=== PATIENT | male | born 2000 ===

== ENCOUNTER 2021-11-04 22:18 | Inpatient (IN) | payer MEDICAID, OTHER ==
--- NOTE | 2021-11-05 00:11 | ED ---
Psych HPI - General Chief Complaint: Psychiatric Symptoms Stated Complaint: Mental Health Time Seen by Provider: 11/04/21 23:27 Source: EMS Mode of arrival: EMS - History of Present Illness Initial Comments: This patient is a 21-year-old man with history of previous psychosis who presents to have evaluation for suspected psychosis. The patient reportedly had attempted to cross the bridge here in to [place]. He was returned to the [place] after [place] authorities felt that he was delusional. The patient reportedly displayed hyperreligious thought content. He was brought here for evaluation. When I interview the patient, he does appear to have paranoid delu sional thought content. The patient's brother is here and provides additional history that he has history of either bipolar or some schizophrenic symptoms. He had been in [facility] in March and discharged with medications including Risperdal and divalproex, that she does not appear to be currently taking. The patient resides in [facility]. He was previously stool in the [facility] but then appeared to have psychotic break and could not continue school. Complaint: other -: days(s) Associated Psychiatric Symptoms: racing thoughts, delusions History of same: Yes Quality: constant Improves With: none Worsens With: none - Related Data Home Medications Medication Instructions Recorded Confirmed No Known Home Medications 11/05/21 11/05/21 Allergies Allergy/AdvReac Type Severity Reaction Status Date / Time No Known Allergies Allergy Verified 11/05/21 08:51 Review of Systems ROS Statement: Those systems with pertinent positive or pertinent negative responses have been documented in the HPI. ROS Other: All systems not noted in ROS Statement are negative. Limitations: ROS unobtainable due to patients medical condition Constitutional: Denies: fever Respiratory: Denies: cough Cardiovascular: Denies: chest pain Gastrointestinal: Denies: abdominal pain Past Medical History Past Medical History: No Reported History History of Any Multi-Drug Resistant Organisms: None Reported Past Surgical History: No Surgical Hx Reported Past Psychological History: Schizophrenia Smoking Status: Never smoker Past Alcohol Use History: None Reported Past Drug Use History: None Reported General Exam Limitations: no limitations General appearance: alert, in no apparent distress, anxious Head exam: Present: atraumatic, normocephalic Eye exam: Present: normal appearance, PERRL, EOMI. Absent: scleral icterus, conjunctival injection ENT exam: Present: normal oropharynx Neck exam: Present: normal inspection, full ROM Respiratory exam: Present: normal lung sounds bilaterally. Absent: respiratory distress, wheezes, rales, rhonchi, stridor Cardiovascular Exam: Present: regular rate, normal rhythm, normal heart sounds. Absent: systolic murmur, diastolic murmur, rubs, gallop GI/Abdominal exam: Present: soft. Absent: distended, tenderness, guarding, rebound, rigid Extremities exam: Present: normal inspection, normal capillary refill Back exam: Present: normal inspection Neurological exam: Present: alert Psychiatric exam: Present: anxious, manic. Absent: homicidal ideation, suicidal ideation Skin exam: Present: warm, dry, intact, normal color. Absent: rash Course Vital Signs 11/05/21 07:57 Temperature 98.7 F Pulse Rate 102 H Respiratory 18 Rate Blood Pressure 132/99 O2 Sat by Pulse 100 Oximetry Medical Decision Making - Lab Data Result diagrams: 11/05/21 03:40 11/05/21 03:40 Lab Results 11/05/21 11/05/21 11/05/21 Range/Units 03:40 03:40 03:40 WBC 10.6 (3.8-10.6) k/uL RBC 5.84 (4.30-5.90) m/uL Hgb 17.4 (13.0-17.5) gm/dL Hct 53.9 H (39.0-53.0) % MCV 92.4 (80.0-100.0) fL MCH 29.7 (25.0-35.0) pg MCHC 32.2 (31.0-37.0) g/dL RDW 11.9 (11.5-15.5) % Plt Count 380 (150-450) k/uL MPV 6.9 Neutrophils % 74 % Lymphocytes % 17 % Monocytes % 6 % Eosinophils % 1 % Basophils % 1 % Neutrophils # 7.8 H (1.3-7.7) k/uL Lymphocytes # 1.8 (1.0-4.8) k/uL Monocytes # 0.7 (0-1.0) k/uL Eosinophils # 0.1 (0-0.7) k/uL Basophils # 0.1 (0-0.2) k/uL Sodium 139 (137-145) mmol/L Potassium 3.9 (3.5-5.1) mmol/L Chloride 99 (98-107) mmol/L Carbon Dioxide 22 (22-30) mmol/L Anion Gap 18 mmol/L BUN 19 (9-20) mg/dL Creatinine 1.25 (0.66-1.25) mg/dL Est GFR (CKD-EPI)AfAm >90 (>60 ml/min/1.73 sqM) Est GFR (CKD-EPI)NonAf 82 (>60 ml/min/1.73 sqM) Glucose 117 H (74-99) mg/dL Estimated Ave Glu mg/dL 98 Hemoglobin A1c 5.0 (0.0-6.0) % Calcium 10.1 (8.4-10.2) mg/dL Total Bilirubin (0.2-1.3) mg/dL Conjugated Bilirubin (0.0-0.3) mg/dL Unconjugated Bilirubin (0.0-1.1) mg/dL Delta Bilirubin (0.0-0.2) mg/dL AST (17-59) U/L ALT (4-49) U/L Alkaline Phosphatase (38-126) U/L Total Protein (6.3-8.2) g/dL Albumin (3.5-5.0) g/dL Urine Opiates Screen (NotDetected) Ur Oxycodone Screen (NotDetected) Urine Methadone Screen (NotDetected) Ur Propoxyphene Screen (NotDetected) Ur Barbiturates Screen (NotDetected) U Tricyclic Antidepress (NotDetected) Ur Phencyclidine Scrn (NotDetected) Ur Amphetamines Screen (NotDetected) U Methamphetamines Scrn (NotDetected) U Benzodiazepines Scrn (NotDetected) Urine Cocaine Screen (NotDetected) U Marijuana (THC) Screen (NotDetected) Serum Alcohol <10 mg/dL Coronavirus (PCR) (Not Detectd) 11/05/21 11/05/21 11/05/21 Range/Units 03:40 03:47 07:52 WBC (3.8-10.6) k/uL RBC (4.30-5.90) m/uL Hgb (13.0-17.5) gm/dL Hct (39.0-53.0) % MCV (80.0-100.0) fL MCH (25.0-35.0) pg MCHC (31.0-37.0) g/dL RDW (11.5-15.5) % Plt Count (150-450) k/uL MPV Neutrophils % % Lymphocytes % % Monocytes % % Eosinophils % % Basophils % % Neutrophils # (1.3-7.7) k/uL Lymphocytes # (1.0-4.8) k/uL Monocytes # (0-1.0) k/uL Eosinophils # (0-0.7) k/uL Basophils # (0-0.2) k/uL Sodium (137-145) mmol/L Potassium (3.5-5.1) mmol/L Chloride (98-107) mmol/L Carbon Dioxide (22-30) mmol/L Anion Gap mmol/L BUN (9-20) mg/dL Creatinine (0.66-1.25) mg/dL Est GFR (CKD-EPI)AfAm (>60 ml/min/1.73 sqM) Est GFR (CKD-EPI)NonAf (>60 ml/min/1.73 sqM) Glucose (74-99) mg/dL Estimated Ave Glu mg/dL Hemoglobin A1c (0.0-6.0) % Calcium (8.4-10.2) mg/dL Total Bilirubin 0.8 (0.2-1.3) mg/dL Conjugated Bilirubin 0.0 (0.0-0.3) mg/dL Unconjugated Bilirubin 0.5 (0.0-1.1) mg/dL Delta Bilirubin 0.3 H (0.0-0.2) mg/dL AST 34 (17-59) U/L ALT 20 (4-49) U/L Alkaline Phosphatase 115 (38-126) U/L Total Protein 9.5 H (6.3-8.2) g/dL Albumin 5.5 H (3.5-5.0) g/dL Urine Opiates Screen Not Detected (NotDetected) Ur Oxycodone Screen Not Detected (NotDetected) Urine Methadone Screen Not Detected (NotDetected) Ur Propoxyphene Screen Not Detected (NotDetected) Ur Barbiturates Screen Not Detected (NotDetected) U Tricyclic Antidepress Not Detected (NotDetected) Ur Phencyclidine Scrn Not Detected (NotDetected) Ur Amphetamines Screen Not Detected (NotDetected) U Methamphetamines Scrn Not Detected (NotDetected) U Benzodiazepines Scrn Not Detected (NotDetected) Urine Cocaine Screen Not Detected (NotDetected) U Marijuana (THC) Screen Not Detected (NotDetected) Serum Alcohol mg/dL Coronavirus (PCR) Not Detected (Not Detectd) Disposition Clinical Impression: Acute psychosis Disposition: ADMITTED IP TO THIS [facility] Condition: Fair Is patient prescribed a controlled substance at d/c from ED?: No
[2021-11-05 04:05] LABS: Basophils # (A) 0.1 k/uL (0-0.2); Basophils % (A) 1 %; Eosinophils # (A) 0.1 k/uL (0-0.7); Eosinophils % (A) 1 %; HCT 53.9 % (39.0-53.0); HGB 17.4 gm/dL (13.0-17.5); Lymphocytes # (A) 1.8 k/uL (1.0-4.8); Lymphocytes % (A) 17 %; MCH 29.7 pg (25.0-35.0); MCHC 32.2 g/dL (31.0-37.0); MCV 92.4 fL (80.0-100.0); Mean Platelet Volume 6.9; Monocytes # (A) 0.7 k/uL (0-1.0); Monocytes % (A) 6 %; Neutrophils # (A) 7.8 k/uL (1.3-7.7); Neutrophils % (A) 74 %; Platelet Count 380 k/uL (150-450); RBC 5.84 m/uL (4.30-5.90); RDW 11.9 % (11.5-15.5); WBC 10.6 k/uL (3.8-10.6)
[2021-11-05 04:20] LABS: African American GFR (CKD) >90 (>60 ml/min/1.73 sqM); Alcohol <10 mg/dL; Anion Gap 18 mmol/L; Blood Urea Nitrogen 19 mg/dL (9-20); Calcium 10.1 mg/dL (8.4-10.2); Carbon Dioxide 22 mmol/L (22-30); Chloride 99 mmol/L (98-107); Glucose 117 mg/dL (74-99); Non-African American GFR(CKD) 82 (>60 ml/min/1.73 sqM); Potassium 3.9 mmol/L (3.5-5.1); Sodium 139 mmol/L (137-145)
[2021-11-05 08:11] LABS: Amphetamine Screen,Urine Not Detected (NotDetected); Barbiturate Screen,Urine Not Detected (NotDetected); Benzodiazepines Screen,Urine Not Detected (NotDetected); Cocaine Screen,Urine Not Detected (NotDetected); Methadone Screen, Urine Not Detected (NotDetected); Opiate Screen,Urine Not Detected (NotDetected); Oxycodone Screen, Urine Not Detected (NotDetected); Phencyclidine Screen,Urine Not Detected (NotDetected); Tricyclic Antidepressant,Urine Not Detected (NotDetected); Urn Cannabinoid Scrn Not Detected (NotDetected)
[2021-11-05] MEDS ORDERED: haloperidoL 5 MG TAB PO PRN (08:24)
[2021-11-05] MEDS ORDERED: MAG HYDROX/AL HYDROX/SIMETH 30 ML CUP PO PRN (08:24)
[2021-11-05] MEDS ORDERED: LORazepam 2 MG/ML INJ IM PRN (08:24)
[2021-11-05] MEDS ORDERED: HALOPERIDOL LACTATE 5 MG/ML 1 ML VIAL IM PRN (08:24)
[2021-11-05] MEDS ORDERED: MAGNESIUM HYDROXIDE 2,400 MG/10 ML CUP PO PRN (08:24)
[2021-11-05] MEDS ORDERED: NICOTINE 14MG/24HR PATCH TRANSDERM SCH (09:00)
--- NOTE | 2021-11-05 12:53 | P.HP ---
Psychiatric H&P - . H&P Date: 11/05/21 History & Physical: Allergies Allergy/AdvReac Type Severity Reaction Status Date / Time No Known Allergies Allergy Verified 11/05/21 08:51 Vital Signs Temp 98.1 F 11/05/21 09:22 Pulse 101 H 11/05/21 09:22 Resp 18 11/05/21 09:22 BP 142/100 11/05/21 09:22 Pulse Ox 100 11/05/21 07:57 FiO2 Intake & Output 11/04/21 11/05/21 11/05/21 18:59 06:59 18:59 Weight 68.039 kg 71.668 kg Laboratory Last Values WBC 10.6 k/uL (3.8-10.6) 11/05/21 03:40 RBC 5.84 m/uL (4.30-5.90) 11/05/21 03:40 Hgb 17.4 gm/dL (13.0-17.5) 11/05/21 03:40 Hct 53.9 % (39.0-53.0) H 11/05/21 03:40 MCV 92.4 fL (80.0-100.0) 11/05/21 03:40 MCH 29.7 pg (25.0-35.0) 11/05/21 03:40 MCHC 32.2 g/dL (31.0-37.0) 11/05/21 03:40 RDW 11.9 % (11.5-15.5) 11/05/21 03:40 Plt Count 380 k/uL (150-450) 11/05/21 03:40 MPV 6.9 11/05/21 03:40 Neutrophils % 74 % 11/05/21 03:40 Lymphocytes % 17 % 11/05/21 03:40 Monocytes % 6 % 11/05/21 03:40 Eosinophils % 1 % 11/05/21 03:40 Basophils % 1 % 11/05/21 03:40 Neutrophils # 7.8 k/uL (1.3-7.7) H 11/05/21 03:40 Lymphocytes # 1.8 k/uL (1.0-4.8) 11/05/21 03:40 Monocytes # 0.7 k/uL (0-1.0) 11/05/21 03:40 Eosinophils # 0.1 k/uL (0-0.7) 11/05/21 03:40 Basophils # 0.1 k/uL (0-0.2) 11/05/21 03:40 Sodium 139 mmol/L (137-145) 11/05/21 03:40 Potassium 3.9 mmol/L (3.5-5.1) 11/05/21 03:40 Chloride 99 mmol/L (98-107) 11/05/21 03:40 Carbon Dioxide 22 mmol/L (22-30) 11/05/21 03:40 Anion Gap 18 mmol/L 11/05/21 03:40 BUN 19 mg/dL (9-20) 11/05/21 03:40 Creatinine 1.25 mg/dL (0.66-1.25) 11/05/21 03:40 Est GFR (CKD-EPI)AfAm >90 (>60 ml/min/1.73 sqM) 11/05/21 03:40 Est GFR (CKD-EPI)NonAf 82 (>60 ml/min/1.73 sqM) 11/05/21 03:40 Glucose 117 mg/dL (74-99) H 11/05/21 03:40 Calcium 10.1 mg/dL (8.4-10.2) 11/05/21 03:40 Urine Opiates Screen Not Detected (NotDetected) 11/05/21 07:52 Ur Oxycodone Screen Not Detected (NotDetected) 11/05/21 07:52 Urine Methadone Screen Not Detected (NotDetected) 11/05/21 07:52 Ur Propoxyphene Screen Not Detected (NotDetected) 11/05/21 07:52 Ur Barbiturates Screen Not Detected (NotDetected) 11/05/21 07:52 U Tricyclic Antidepress Not Detected (NotDetected) 11/05/21 07:52 Ur Phencyclidine Scrn Not Detected (NotDetected) 11/05/21 07:52 Ur Amphetamines Screen Not Detected (NotDetected) 11/05/21 07:52 U Methamphetamines Scrn Not Detected (NotDetected) 11/05/21 07:52 U Benzodiazepines Scrn Not Detected (NotDetected) 11/05/21 07:52 Urine Cocaine Screen Not Detected (NotDetected) 11/05/21 07:52 U Marijuana (THC) Screen Not Detected (NotDetected) 11/05/21 07:52 Serum Alcohol <10 mg/dL 11/05/21 03:40 Coronavirus (PCR) Not Detected (Not Detectd) 11/05/21 03:47 11/05/21 12:47 IDENTIFYING DATA: Patient is a 21-year-old czech male, with a history of schizophrenia, currently lives with his brother. HPI: Patient presented to the hospital yesterday as he. Apparently attempted to [place] the border into [place]. He was brought in by authorities for acting delusional and bizarre with border patrol. Patient apparently was hyper hindu and apparently has a history of schizophrenia and not taking his medications. Patient was petitioned by his brother and admitted involuntarily. Patient was agreeable to speak to verse writer today. He is fairly preoccupied with discharge appeared to have poor judgment and insight. He claims that he does have a history of schizophrenia and he claims that he was "moving out from my brother's house" and states that he lives in [place]. He claims that he was driving to "get away from people" and was endorsing paranoia. He states that "I must have been tripping out". He claims that he just so happened to get onto the bridge and go to [place] where he was caught. He claims to want to get away from these people that were following him. He claims that his mood is "fine" and he was illogical at times and had loose associations. He is denying any anxiety today. He claims that he does hear voices at times and also music. He is denying any visual hallucinations. Patient is denying any suicidal or homicidal ideations intent or plan. Patient denies any flight of ideas racing thoughts and increased in goal directed behavior. Patient admits to using no recreational drugs or cigarettes PAST PSYCHIATRIC HISTORY: Patient states that he has a history of schizophrenia. He claims that he is currently not on any medications however used to take Risperdal and Depakote. He claims that he was previously admitted to [facility] however cannot remember when. Patient denies any psychiatric outpatient follow- up. Patient denies any history of suicide attempts in the past. PMH: As per medical H&P ALLERGIES: as per EMR CHEMICAL DEPENDENCY HISTORY: as per HPI FAMILY PSYCHIATRIC/SUBSTANCE USE HISTORY: He believes that his father may have some form of mental illness. SOCIAL HISTORY: Patient was born and raised in [facility] and moved [place] the [place] when he was 4 years old. He claims that he was previously enrolled at [facility] for [employer] however dropped out in 2018. He is denying any legal history however does state that he may have been charged with trespassing in the past. He is unmarried has no kids, currently living with his brother. MENTAL STATUS EXAM: General Appearance: Patient appears to be wearing glasses, stated age is alert, guarded and paranoid at times. Patient appears to have poor hygiene and grooming. Behavior: Patient is seated without any agitated behavior. Paranoia, guarded Speech: Patient's speech is fluent and nonpressured. [place]. Mood/Affect: Patient reports their mood is ok, affect is congruent and constricted. Suicidality/Homicidality: Patient denies having any homicidal ideation intent or plan. Denies any suicidal ideations intent or plan Perceptions: Patient denies any visual hallucinations and claims that he does hear voices and music at times. Though content/process: Patient is endorsing paranoia. Illogical and loose associations. Memory and concentration: AOX3, grossly intact for the purposes of this session. Can spell "WORLD" backwards Judgment and insight: poor STRENGTHS/WEAKNESSES: strength is that patient is resilient. Weakness is that patient has poor judgment and is impulsive INTELLECT: average IMPRESSIONS: Schizophrenia PLAN: -Patient is admitted under involuntary status to MHU for stabilization of psychiatric symptoms and safety. Patient has not signed adult voluntary form and medication consent and is placed in patient's chart. A second certification was completed and along with petition will be filed for court. -Medications : Will start patient on Abilify 5 mg daily for psychosis with a plan to titrate up as needed. Trazodone 50 mg daily at bedtime for sleep. -Ativan and Haldol PRN for agitation/aggression -Patient was informed of the risks, benefits and side effects of the medication and patient verbally consented to taking the medications. Patient signed med consent form and was placed in chart. -Internal Medicine consult to perform medical evaluation and physical. -NRT - not needed as patient does not smoke -SW on board for discharge planning. Encourage patient to participate in groups to work on coping skills. Will await deferral and court date.
[2021-11-05] MEDS: ARIPiprazole 5 MG TAB PO SCH (13:07)
--- NOTE | 2021-11-05 14:18 | P.PN ---
Progress Note - Text Currently, patient is not agreeable to meet with me and refused to be seen by me. We'll try again tomorrow
[2021-11-05] MEDS: traZODone HCL 50 MG TAB PO SCH (21:31)
[2021-11-06 05:45] LABS: ALT 20 U/L (4-49); AST 34 U/L (17-59); Albumin 5.5 g/dL (3.5-5.0); Alkaline Phosphatase 115 U/L (38-126); Bilirubin, Delta 0.3 mg/dL (0.0-0.2); Bilirubin,Unconjugated 0.5 mg/dL (0.0-1.1); Total Bilirubin 0.8 mg/dL (0.2-1.3); Total Protein 9.5 g/dL (6.3-8.2)
[2021-11-06] MEDS: ARIPiprazole 5 MG TAB PO SCH ×2 (09:35→20:48)
--- NOTE | 2021-11-06 12:37 | P.PN ---
Subjective Progress Note Date: 11/06/21 Principal diagnosis: Schizophrenia Subjective: The patient didn't have much to say he said he realizes he needs take the medication he denied that any medicine he had taken in the past worked well and obviously felt discouraged about the likelihood of having any kind of life. 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 The patient was very lethargic and had some Abilify this morning. But he could not remember whether he was more alert before he took the medicine or not. MENTAL STATUS EXAM: He had absolutely no eye contact General Appearance: Patient appears to be wearing glasses, stated age is alert, guarded and paranoid at times. Patient appears to have poor hygiene and grooming. Behavior: Patient is seated without any agitated behavior. Paranoia, guarded Speech: Patient's speech is fluent and nonpressured. [place]. Mood/Affect: Hopeless affect is flat Suicidality/Homicidality: Patient denies having any homicidal ideation intent or plan. Denies any suicidal ideations intent or plan Perceptions: Patient denies any visual hallucinations and claims that he does hear voices and music at times. Though content/process: Patient is endorsing paranoia. Illogical and loose asso ciations. Memory and concentration: AOX3, grossly intact for the purposes of this session. Can spell "WORLD" backwards Judgment and insight: poor STRENGTHS/WEAKNESSES: strength is that patient is resilient. Weakness is that patient has poor judgment and is impulsive INTELLECT: average IMPRESSIONS: Schizophrenia PLAN: I'm going to move the Abilify to the evening and discontinue the trazodone as he has much too lethargic -Patient is admitted under involuntary status to MHU for stabilization of psychiatric symptoms and safety. Patient has not signed adult voluntary form and medication consent and is placed in patient's chart. A second certification was completed and along with petition will be filed for court. -Ativan and Haldol PRN for agitation/aggression -Patient was informed of the risks, benefits and side effects of the medication and patient verbally consented to taking the medications. Patient signed med consent form and was placed in chart. -Internal Medicine consult to perform medical evaluation and physical. -NRT - not needed as patient does not smoke -SW on board for discharge planning. Encourage patient to participate in groups to work on coping skills. Will await deferral and court date. Objective - Vital Signs Vital signs: Vital Signs Temp 99.2 F 11/06/21 07:04 Pulse 121 H 11/06/21 07:04 Resp 18 11/05/21 09:22 BP 117/70 11/06/21 07:04 Pulse Ox 99 11/06/21 07:04 FiO2 Intake & Output 11/05/21 11/06/21 11/06/21 18:59 06:59 18:59 Weight 71.668 kg - Labs CBC & Chem 7: 11/05/21 03:40 11/05/21 03:40 Labs: Abnormal Lab Results - Last 24 Hours (Table) 11/05/21 Range/Units 03:40 Delta Bilirubin 0.3 H (0.0-0.2) mg/dL Total Protein 9.5 H (6.3-8.2) g/dL Albumin 5.5 H (3.5-5.0) g/dL
[2021-11-06 18:07] LABS: Chol/HDL Ratio 7.74 Ratio; LDL Cholesterol,Calculated 187.4 mg/dL (0.0-131.0)
[2021-11-06] MEDS: traZODone HCL 50 MG TAB PO SCH (20:48)
--- NOTE | 2021-11-07 08:55 | P.PN ---
Subjective Progress Note Date: 11/07/21 Principal diagnosis: Schizophrenia Schizophrenia Subjective: The patient said that he thinks the medication is helping that it allows him to talk to other people and keep his mind on the topic. However he did not want to increase it any at this point. MENTAL STATUS EXAM: He had much improved eye contact about 50% of time he looked at me and his social skills were better he said, " think you nice to meet you" at the end of the session. General Appearance: Patient appears to be wearing glasses, stated age is alert, guarded and paranoid at times. Patient appears to have poor hygiene and grooming. Behavior: Patient is seated without any agitated behavior. Paranoia, still guarded sitting with his arms crossed Speech: Patient's speech is fluent and nonpressured. [place]. Mood/Affect: Seems to be less hopeless, his affect is flat Suicidality/Homicidality: Patient denies having any homicidal ideation intent or plan. Denies any suicidal ideations intent or plan Perceptions: Patient denies any visual hallucinations and claims that he does hear voices and music at times. Though content/process: Patient is endorsing paranoia. His associations seem to be intact Memory and concentration: AOX3, grossly intact for the purposes of this session. Judgment and insight: Improved he was asking what he needs to do besides take medications in order to do well after discharge and that he is committed to continuing to take medicine. STRENGTHS/WEAKNESSES: strength is that patient is resilient and intelligent. Weakness is that patient has poor judgment and is impulsive PLAN: Moving the Abilify to the evening seems to have helped he is much less lethargic this morning -Patient is admitted under involuntary status to MHU for stabilization of psychiatric symptoms and safety. Patient has not signed adult voluntary form and medication consent and is placed in patient's chart. A second certification was completed and along with petition will be filed for court. I think that he is improving well enough that in the next day or 2 we might allow him to sign in on his own Medications: Abilify 5 mg every day -Ativan and Haldol PRN for agitation/aggression -Patient was informed of the risks, benefits and side effects of the medication and patient verbally consented to taking the medications. Patient signed med consent form and was placed in chart. -Internal Medicine consult to perform medical evaluation and physical. -NRT - not needed as patient does not smoke -SW on board for discharge planning. Encourage patient to participate in groups to work on coping skills. Will await deferral and court date. Objective - Vital Signs Vital signs: Vital Signs Temp 96.8 F L 11/07/21 02:28 Pulse 94 11/07/21 02:28 Resp 16 11/07/21 02:28 BP 118/79 11/07/21 02:28 Pulse Ox 99 11/06/21 07:04 FiO2 - Labs CBC & Chem 7: 11/05/21 03:40 11/05/21 03:40 Labs: Abnormal Lab Results - Last 24 Hours (Table) 11/05/21 Range/Units 03:40 Cholesterol 240.00 H (0.00-200.00) mg/dL LDL Cholesterol, Calc 187.4 H (0.0-131.0) mg/dL HDL Cholesterol 31.00 L (40.00-60.00) mg/dL
[2021-11-07] MEDS: traZODone HCL 50 MG TAB PO SCH (19:28)
[2021-11-07] MEDS: ARIPiprazole 5 MG TAB PO SCH (19:28)
[2021-11-08] MEDS: LORazepam 1 MG TAB PO PRN ×2 (00:47→12:29)
[2021-11-08] MEDS: ACETAMINOPHEN TAB 325 MG TAB PO PRN ×2 (12:29→17:38)
--- NOTE | 2021-11-08 13:39 | P.PN ---
Progress Note - Text Progress Note Date: 11/08/21 Clinical Problems: Schizophrenia Interim history: I reviewed the medical record, interviewed the patient and discussed the treatment and treatment plan with the treatment team. He came to my office with a list of reasons why he should be discharged. He was unable to explain the reason for this hospitalization or how he came to be admitted. He talked about driving and being detained at the [facility]. He denied that he was experiencing auditory or visual hallucinations. He denied other psychotic symptoms such as thought insertion, thought broadcasting etc. However, nursing notes that he is paranoid and has been observed to be responding to internal stimuli. He showed me that if I were to discharge him he would follow through with outpatient treatment. He has had no management problems in addition episodes of behavioral dyscontrol. He is compliant with prescribed psychotropic medications. He has a deferral hearing on 11/09/2021 and a full hearing on 11/10/2021. Mental status exam: He presented as a thin casually dressed young adult male and descent. He is pleasant on approach, maintained eye contact and appeared to be attending to the interview. He had no prominent physical abnormalities. He had a flat facial expression. He was alert and oriented to person and place. He had psychomotor retardation but no abnormal involuntary movements. His speech Decreased rate and rhythm. His affect was blunted. He denied suicidal ideation and wishes. He denied homicidal ideation. He did not express feelings of hopelessness, helplessness or worthlessness. He was guarded but did not express clear ideas reference, paranoid ideation or delusions. His thinking was concrete and at times illogical. He perseverated about discharge. He denied hallucinations and did not appear to be responding to internal stimuli during our interview. Assessment: His overall clinical status appears minimally improve from admission. He has poor insight or understanding of his illness but he is compliant with medications. Plan: Continue inpatient treatment. Safety precautions. Deferral hearing pending. Continue Abilify 5 mg at bedtime and titrated according to clinical response and tolerance. Desyrel 50 mg at bedtime for sleep. Discuss benefits of long-acting monthly injections as opposed to daily oral. Haldol and/or Ativan when necessary for anxiety, agitation acute psychosis. general distillery worker to coordinate discharge and aftercare.
[2021-11-08] MEDS: ARIPiprazole 5 MG TAB PO SCH (21:59)
[2021-11-08] MEDS: traZODone HCL 50 MG TAB PO SCH (21:59)
[2021-11-09] MEDS: LORazepam 1 MG TAB PO PRN ×2 (00:09→15:06)
[2021-11-09] MEDS: ACETAMINOPHEN TAB 325 MG TAB PO PRN ×2 (08:53→15:28)
--- NOTE | 2021-11-09 11:50 | P.PN ---
Progress Note - Text Progress Note Date: 11/09/21 Clinical Problems: Schizophrenia Interim history: I reviewed the medical record, interviewed the patient and discussed the treatment and treatment plan with the treatment team. He is anxious about this hospitalization and again approach be about discharge. I explained that we're waiting on his deferral hearing from [facility]. Again, she denied that he is experiencing auditory or visual hallucinations as well as other psychotic symptoms such as thought insertion, thought broadcasting etc. During team, staff noted that he is not appeared as paranoid as he did on admission. There have been no reports of him acting as though he were responding to internal stimuli. He is compliant with medications and is posed no management problem. At the intermittently attends therapeutic groups and activities. Mental status exam: He presented as a thin casually dressed young adult male and descent. He is pleasant on approach, maintained eye contact and appeared to be attending to the interview. He had no prominent physical abnormalities. He had a flat facial expression. He was alert and oriented to person and place. He had psychomotor retardation but no abnormal involuntary movements. His speech was spontaneous but with decreased rate and rhythm. His affect was blunted. He denied suicidal ideation and wishes. He denied homicidal ideation. He did not express feelings of hopelessness, helplessness or worthlessness. He was guarded but did not express clear ideas reference, paranoid ideation or delusions. His thinking was concrete but organized and linear. He perseverated about discharge. He denied hallucinations and did not appear to be responding to internal stimuli during our interview. Assessment: His overall clinical status appears minimally improve from admission. He has poor insight or understanding of his illness but he is compliant with medications. Plan: Continue inpatient treatment. Safety precautions. Deferral hearing pending. Continue Abilify 5 mg at bedtime and titrated according to clinical response and tolerance. Desyrel 50 mg at bedtime for sleep. Discuss benefits of long-acting monthly injections as opposed to daily oral. Haldol and/or Ativan when necessary for anxiety, agitation acute psychosis. machine shop worker to coordinate discharge and aftercare.
[2021-11-09] MEDS: traZODone HCL 50 MG TAB PO SCH (20:42)
[2021-11-09] MEDS: ARIPiprazole 5 MG TAB PO SCH (20:42)
[2021-11-10] MEDS: LORazepam 1 MG TAB PO PRN ×4 (03:48→23:31)
[2021-11-10] MEDS: ACETAMINOPHEN TAB 325 MG TAB PO PRN ×2 (08:38→14:52)
--- NOTE | 2021-11-10 14:01 | P.PN ---
Progress Note - Text Progress Note Date: 11/10/21 Clinical Problems: Schizophrenia Interim history: I reviewed the medical record, interviewed the patient and discussed the treatment and treatment plan with the treatment team. He remains anxious about this hospitalization and the probate hearing. He perseverated about the hospitalization, the deferral hearing and the probate process. I explained that his probate hearing scheduled for 11/16/2021 but we do not have the date for the deferral. He is compliant with medications and has posed no management problem. HE intermittently attends therapeutic groups and activities. He slept 4 hours last night. Mental status exam: He presented as a thin casually dressed young adult male. He is pleasant on approach, maintained eye contact and appeared to be attending to the interview. He had a anxious facial expression. He was alert and oriented to person and place. He was restless throughout the interview and is often observed pacing the unit. His speech was spontaneous but with decreased rate and rhythm. His affect was blunted. He denied suicidal ideation and wishes. He denied homicidal ideation. He did not express feelings of hopelessness, helplessness or worthlessness. He was guarded but did not express clear ideas reference, paranoid ideation or delusions. His thinking was concrete but organized and directed. He perseverated about discharge. He denied hallucinations and did not appear to be responding to internal stimuli during our interview. Assessment: His overall clinical status appears minimally improve from admission. He has poor insight or understanding of his illness but he is compliant with medications. Plan: Continue inpatient treatment. Safety precautions. Deferral hearing pending. Continue Abilify 5 mg at bedtime and titrated according to clinical response and tolerance. Desyrel 50 mg at bedtime for sleep. Discuss benefits of long-acting monthly injections as opposed to daily oral. Haldol and/or Ativan when necessary for anxiety, agitation acute psychosis. home economics extension worker to coordinate discharge and aftercare.
[2021-11-10] MEDS: traZODone HCL 50 MG TAB PO SCH (22:05)
[2021-11-10] MEDS: ARIPiprazole 5 MG TAB PO SCH (22:05)
[2021-11-11] MEDS: LORazepam 1 MG TAB PO PRN (04:50)
[2021-11-11 08:59] LABS: Appearance,Urine Clear (Clear); Bilirubin,Urine Negative (Negative); Blood,Urine Negative (Negative); Color,Urine Yellow; Glucose,Urine (UA) Negative (Negative); Ketones,Urine Negative (Negative); Leukocyte Esterase,Urine Negative (Negative); Nitrite,Urine Negative (Negative); PH, Urine 6.5 (5.0-8.0); Protein,Urine Trace (Negative); Specific Gravity,Urine 1.025 (1.001-1.035); Urobilinogen,Urine <2.0 mg/dL (<2.0)
[2021-11-11] MEDS ORDERED: ARIPiprazole 5 MG TAB PO ONE (09:42)
--- NOTE | 2021-11-11 10:34 | P.PN ---
Progress Note - Text Progress Note Date: 11/11/21 Interval History: Patient was seen [wandering the hallways] and was directable and agreeable to speak with copywriter in the office. Patient appeared to be more cooperative today with copywriter and directable during conversation. He is endorsing less paranoia today however continues to be fairly preoccupied with being discharged and believes that "I'm not getting the best treatment here" and believes that he will do better "as an outpatient". Kidneys demonstrated fairly poor insight and judgment however is agreeable to continue with medications. He does appear to have improvement in impulse control today. He claims that his mood and anxiety been gradually improving. He states that his sleep has been gradually improving however needed more help with sleep. At this time patient denies any suicidal or homical ideations, intent or plan. Patient is claiming that he is hearing voices during the day still however these have been mildly improving. Patient denies any visual hallucinations. Patient denies any side effects from the medications and has been compliant with meds. Mental Status Exam: General Appearance: Patient appears to be wearing glasses, stated age is alert, guarded and paranoid at times, improving mildly. Patient appears to have improving hygiene and grooming. Behavior: Patient is seated without any agitated behavior. Paranoia, guarded, improving Speech: Patient's speech is fluent and nonpressured. [place]. Mood/Affect: Patient reports their mood is ok, affect is congruent and constricted. Suicidality/Homicidality: Patient denies having any homicidal ideation intent or plan. Denies any suicidal ideations intent or plan Perceptions: Patient denies any visual hallucinations and claims that he does hear voices still Though content/process: Patient is endorsing paranoia which is improving. Focused on discharge and minimizing his symptoms. Memory and concentration: AOX3, grossly intact for the purposes of this session Judgment and insight: Chronically poor, improving mildly IMPRESSIONS: Schizophrenia Plan: -Patient continues to meet criteria for inpatient psychiatric admission for symptom stabilization and safety. Patient has [not] signed [adult voluntary form and] [medication consent] and was placed in patient's chart. -Medications: Increased Abilify to 10 mg daily for mood/psychosis, plan will be to transition patient onto long-acting injection. Increase trazodone to 100 mg daily at bedtime for insomnia/mood. -When necessary Ativan and Haldol for agitation/aggression. -NRT - not needed as patient does not smoke -SW on board for discharge planning. Encouraged the patient to participate in milieu. Patient will have deferral today with his synthetic filament spinner at 2 PM. Likely discharge early next week after patient is transitioned onto long-acting injection.
[2021-11-11] MEDS: ARIPiprazole 10 MG TAB PO SCH (11:01)
[2021-11-11] MEDS: ACETAMINOPHEN TAB 325 MG TAB PO PRN (18:42)
[2021-11-11] MEDS ORDERED: traZODone HCL 100 MG TAB PO SCH (21:00)
[2021-11-12] MEDS: LORazepam 1 MG TAB PO PRN (00:53)
[2021-11-12] MEDS: ARIPiprazole 10 MG TAB PO SCH (08:40)
[2021-11-12] MEDS ORDERED: ARIPiprazole 10 MG TAB PO SCH (09:00)
[2021-11-12] MEDS ORDERED: diphenhydrAMINE 25 MG CAP PO PRN (10:31)
[2021-11-12] MEDS ORDERED: ARIPiprazole IM 400 MG VIAL (NO COST) PHARMACY STOCK IM ONE (10:45)
--- NOTE | 2021-11-12 10:47 | P.PN ---
Progress Note - Text Progress Note Date: 11/12/21 Interval History: Patient was seen wandering the hallways and was directable and agreeable to sp kemik with law writer in the office. Patient appeared to be more cooperative today with law writer. Patient claims that he is in a "happier" mood today. He states he still feels anxious at times because he does not know when he is going to leave the hospital. He claims that he is not feeling depressed today. He has been more social on the unit and going to groups. He appeared to be more logical in his thought process. Continues to have improving insight and we spoke today about the long-acting injection. We also did a 3-way call over the phone with patient's brother who is also on board with the long-acting injection to rely less on medications and pills. Patient claims that his paranoia and the voices have been improving significantly since yesterday. At this time patient denies any suicidal or homical ideations, intent or plan. Patient denies any visual hallucinations. Patient denies any side effects from the medications and has been compliant with meds. Mental Status Exam: General Appearance: Patient appears to be wearing glasses, stated age is alert, paranoia, improving mildly. Patient appears to have improving hygiene and grooming. Behavior: Patient is seated without any agitated behavior. Paranoia, improving Speech: Patient's speech is fluent and nonpressured. [place]. Mood/Affect: Patient reports their mood is ok, affect is congruent Suicidality/Homicidality: Patient denies having any homicidal ideation intent or plan. Denies any suicidal ideations intent or plan Perceptions: Patient denies any visual hallucinations and claims that he does hear voices still Though content/process: Patient is more logical today and goal oriented. Focused on discharge Memory and concentration: AOX3, grossly intact for the purposes of this session Judgment and insight: Chronically poor, improving mildly IMPRESSIONS: Schizophrenia Plan: -Patient continues to meet criteria for inpatient psychiatric admission for symptom stabilization and safety. Patient has not signed adult voluntary form and medication consent and was placed in patient's chart. -Medications: Abilify 10 mg daily for mood/psychosis. Abilify Maintenna 400 mg IM long acting injection today. Increase trazodone to 150 mg daily at bedtime for insomnia/mood. -When necessary Ativan and Haldol for agitation/aggression. -NRT - not needed as patient does not smoke -SW on board for discharge planning. Encouraged the patient to participate in milieu. Patient signed deferral with his money room teller. Likely discharge monday as patient is receiving GAYTAN today and will monitor over the weekend.
[2021-11-12] MEDS ORDERED: ARIPiprazole IM SYRINGE 400 MG (NO CHARGE) PHARMACY STOCK IM ONE (11:00)
[2021-11-12] MEDS: ACETAMINOPHEN TAB 325 MG TAB PO PRN (19:25)
[2021-11-12] MEDS: traZODone HCL 50 MG TAB PO SCH (21:24)
[2021-11-13] MEDS: ARIPiprazole 10 MG TAB PO SCH (08:30)
[2021-11-13] MEDS: ACETAMINOPHEN TAB 325 MG TAB PO PRN (08:33)
--- NOTE | 2021-11-13 15:27 | P.PN ---
Progress Note - Text Progress Note Date: 11/13/21 Subjective: Patient was seen today as a cross coverage for Dr. Levy. The patient was evaluated, chart reviewed, case discussed with the treatment team. Patient reports intermittent sleep last night, and appetite was reported as " fair". Patient has been going to groups and other unit activities. The patient is compliant with his medications and denies any adverse reactions. Patient reports improved mood today, denies any S/H ideation. He denies any hallucinations, delusions or manic symptoms. Patient reported Trazodone caused him "bad reaction yesterday, and he felt weak". He doesn't want to take it and he refused to discuss any other medications for sleep. Objective: Vitals has been reviewed. Mental status examination; General Appearance: Patient appears to be wearing glasses, stated age is alert. Patient appears fair hygiene and grooming. Behavior: Patient is seated without any agitated behavior. Normal gait Speech: Patient's speech is fluent and non pressured. Mood/Affect: "fine" Affect: Congruent but restricted Suicidality/Homicidality: Patient denies having any homicidal ideation intent or plan. Denies any suicidal ideation intent or plan Perceptions: Patient denies any visual hallucinations and claims that he does hear voices still Though content/process: Patient is more logical today and goal oriented. Focused on discharge Memory and concentration: AOX3, grossly intact for the purposes of this session Judgment and insight: Chronically poor, improving mildly Assessment: Schizophrenia Plan: Continue inpatient level of care due to [] Precautions: Continue 15 minutes check for safety. Consider medical consultation if any acute medical issues arise. Provide the patient individual, group therapy, substance use disorder counseling to give better insight and learn coping skills. Medications: Abilify 10 mg daily for mood/psychosis. Abilify Maintenna 400 mg IM long acting injection Given yesterday. Continue trazodone to 150 mg daily at bedtime for insomnia/mood. When necessary Ativan and Haldol for agitation/aggression. NRT - not needed as patient does not smoke Continue as needed medications for psychiatric emergencies including psychosis, agitation and anxiety. Continue non-psychiatric medications for medical conditions as recommended by the medical team. Discharge patient to OUTPATIENT services upon a stabilization
[2021-11-13] MEDS: traZODone HCL 50 MG TAB PO SCH (20:49)
[2021-11-14 06:57] VITALS: RESP 16
[2021-11-14] MEDS: ARIPiprazole 10 MG TAB PO SCH (08:12)
--- NOTE | 2021-11-14 15:19 | P.PN ---
Progress Note - Text Progress Note Date: 11/14/21 Subjective: Patient was seen today as a cross coverage for Dr. Levy. The patient was evaluated, chart reviewed, case discussed with the treatment team. Patient reported feeling stable emotionally and he denies symptoms of depression, hopelessness, or suicidal ideation. Patient denied hallucinations including auditory or visual hallucinations, paranoid ideation, and no delusions could be elicited. Patient continued to attend groups and other unit activities. He continued to take his psychiatric medications and denies side effects. He reports fair sleep and appetite. Objective: Vitals has been reviewed. Mental status examination; General Appearance: Patient appears to be wearing glasses, stated age is alert. Patient appears fair hygiene and grooming. Behavior: Patient is seated without any agitated behavior. Normal gait Speech: Patient's speech is fluent and non pressured. Mood/Affect: "fine" Affect: Congruent but restricted Suicidal /Homicidal ideation: Patient denies having any homicidal ideation intent or plan. Denies any suicidal ideation intent or plan Perceptions: Patient denies any visual hallucinations and claims that he does hear voices still Though content/process: Patient is more logical today and goal oriented. Focused on discharge Memory and concentration: AOX3, grossly intact for the purposes of this session Judgment and insight: Chronically poor, improving mildly Assessment: Schizophrenia Plan: Continue inpatient level of care due to need for further monitoring and stabilization Precautions: Continue 15 minutes check for safety. Consider medical consultation if any acute medical issues arise. Provide the patient individual, group therapy, substance use disorder counseling to give better insight and learn coping skills. Medications: Abilify 10 mg daily for mood/psychosis. Abilify Maintenna 400 mg IM long acting injection Given Continue trazodone to 150 mg daily at bedtime for insomnia/mood. When necessary Ativan and Haldol for agitation/aggression. NRT - not needed as patient does not smoke Continue as needed medications for psychiatric emergencies including psychosis, agitation and anxiety. Continue non-psychiatric medications for medical conditions as recommended by the medical team. Discharge patient to OUTPATIENT services upon a stabilization
[2021-11-14] MEDS: traZODone HCL 50 MG TAB PO SCH (21:30)
[2021-11-15 07:07] VITALS: BP 129/94; PULSE 69; TEMP 97.4
[2021-11-15] MEDS: ARIPiprazole 10 MG TAB PO SCH (08:18)
--- NOTE | 2021-11-15 10:05 | P.DS ---
Providers Date of admission: 11/05/21 08:18 Expected date of discharge: 11/15/21 Attending physician: Kane Adorno MD Consults: 11/05/21 08:24 Consult Physician Routine Consulting Provider: Nica Physician Consult Reason/Comments: H & P Do you want consulting provider notified?: Yes Primary care physician: Stated None - Discharge Diagnosis(es) (1) Schizophrenia Current Visit: Yes Status: Acute Priority: High Hospital Course: Admission HPI: Admission note was completed by telegraphic typewriter installer "Patient is a 21-year-old lao male, with a history of schizophrenia, currently lives with his brother. Patient presented to the hospital yesterday as he. Apparently attempted to cross the border into [place]. He was brought in by authorities for acting delusional and bizarre with border patrol. Patient apparently was hyper spiritism and apparently has a history of schizophrenia and not taking his medications. Patient was petitioned by his brother and admitted involuntarily. Patient was agreeable to speak to telegraphic typewriter installer today. He is fairly preoccupied with discharge appeared to have poor judgment and insight. He claims that he does have a history of schizophrenia and he claims that he was "moving out from my brother's house" and states that he lives in [place]. He claims that he was driving to "get away from people" and was endorsing paranoia. He states that "I must have been tripping out". He claims that he just so happened to get onto the bridge and go to [place] where he was caught. He claims to want to get away from these people that were following him. He claims that his mood is "fine" and he was illogical at times and had loose associations. He is denying any anxiety today. He claims that he does hear voices at times and also music. He is denying any visual hallucinations. Patient is denying any suicidal or homicidal ideations intent or plan. Patient denies any flight of ideas racing thoughts and increased in goal directed behavior. Patient admits to using no recreational drugs or cigarettes" Hospital course: Upon admission to the unit patient was admitted involuntarily on a petition and certificate and a second certificate was completed and faxed with the courts. Patient ended up signing a deferral with the attorney at law and agreeing to treatment. Patient got along well with other patients on the unit and followed unit protocol. Patient was compliant with the medications and denied any side effects throughout hospital course. Patient was started on Abilify and titrated up to dose of 10 mg daily for mood/psychosis. Patient was transitioned onto Abilify Maintenna 400 mg IM on 11/12 and will be due for his next dose of 400 mg IM on 12/10. Patient was also started on trazodone increase to go several 150 mg daily at bedtime however stopped taking the medication as he was able to sleep on his own. Patient spoke of his stressors and engaged in therapy both group and individual. Patient was also seen by medical team for history and physical exam. Throughout the course of the hospitalization patient gradually improved with regards to psychosis and mood, sleep and returned back to their baseline level of functioning. On the day of discharge patient denied any suicidal or homicidal ideations intent or plan denied any auditory or visual hallucinations. Patient endorsed wanting to live for his health and family. The patient denied any access to guns or weapons. Patient denied any paranoia and did not endorse any delusions. Patient does not have a significant history of substance abuse and was counseled on abstaining from all substances including alcohol and marijuana. Patient was also counseled on the medications and need for regular compliance and was encouraged to follow-up with their outpatient appointment for mental health and also for primary care. Prior to discharge a family meeting will be arranged by social security benefits interviewer to answer any questions and ensure safety upon discharge. Mental status exam: General Appearance: Patient appears to be stated age is alert, pleasant, and cooperative. Patient is in no acute distress and has improved hygiene and grooming Behavior: Patient is calmly seated without any agitated behavior. Speech: Patient's speech is fluent and nonpressured. Mood/Affect: Patient reports their mood is "better", affect is congruent and euthymic. Suicidality/Homicidality: Patient denies having any suicidal or homicidal ideation intent or plan. Perceptions: Patient denies any auditory or visual hallucinations. Though content/process: There is no evidence of any delusional thought content and thought process is linear and goal-directed. [place] Memory and concentration: AOX3, grossly intact for the purposes of this session. Can spell "WORLD" backwards correctly. Judgment and insight: chronically poor, however has improved with guarded prognosis Impression: Schizophrenia Plan: -Continue with discharge today as patient has improved and stabilized psychiatrically and is not currently an imminent threat to himself and/or others. Patient will remain at chronically elevated risk for harm to self and/or others due to his chronic mental illness. -Continue medications: Continue with Abilify by mouth 10 mg daily for mood/psychosis for 11 more days then discontinue. Patient received Abilify Maintenna 400 mg IM on 11/12 and will be due for the next dose on 12/10. -Patient was counseled on the need for medication compliance and appropriate follow-up at mental health and also primary care for medical issues. Patient verbalized understanding and agreed. -Social work to arrange for and conduct family meeting to ensure safety upon discharge and answer any questions/concerns. Social work also to arrange for patients follow up appointments for psychiatric care along with follow up with primary care provider. -Patient counseled on abstaining from recreational drugs and marijuana and alcohol. Was informed/educated on the adverse effects on their physical and mental health. Patient verbally agreed and understood. -Patient was instructed to return to the hospital or seek immediate medical care if their psychiatric or medical symptoms do worsen or reoccur. Allergies Allergy/AdvReac Type Severity Reaction Status Date / Time No Known Allergies Allergy Verified 11/05/21 08:51 Laboratory Results WBC 10.6 k/uL (3.8-10.6) 11/05/21 03:40 RBC 5.84 m/uL (4.30-5.90) 11/05/21 03:40 Hgb 17.4 gm/dL (13.0-17.5) 11/05/21 03:40 Hct 53.9 % (39.0-53.0) H 11/05/21 03:40 MCV 92.4 fL (80.0-100.0) 11/05/21 03:40 MCH 29.7 pg (25.0-35.0) 11/05/21 03:40 MCHC 32.2 g/dL (31.0-37.0) 11/05/21 03:40 RDW 11.9 % (11.5-15.5) 11/05/21 03:40 Plt Count 380 k/uL (150-450) 11/05/21 03:40 MPV 6.9 11/05/21 03:40 Neutrophils % 74 % 11/05/21 03:40 Lymphocytes % 17 % 11/05/21 03:40 Monocytes % 6 % 11/05/21 03:40 Eosinophils % 1 % 11/05/21 03:40 Basophils % 1 % 11/05/21 03:40 Neutrophils # 7.8 k/uL (1.3-7.7) H 11/05/21 03:40 Lymphocytes # 1.8 k/uL (1.0-4.8) 11/05/21 03:40 Monocytes # 0.7 k/uL (0-1.0) 11/05/21 03:40 Eosinophils # 0.1 k/uL (0-0.7) 11/05/21 03:40 Basophils # 0.1 k/uL (0-0.2) 11/05/21 03:40 Sodium 139 mmol/L (137-145) 11/05/21 03:40 Potassium 3.9 mmol/L (3.5-5.1) 11/05/21 03:40 Chloride 99 mmol/L (98-107) 11/05/21 03:40 Carbon Dioxide 22 mmol/L (22-30) 11/05/21 03:40 Anion Gap 18 mmol/L 11/05/21 03:40 BUN 19 mg/dL (9-20) 11/05/21 03:40 Creatinine 1.25 mg/dL (0.66-1.25) 11/05/21 03:40 Est GFR (CKD-EPI)AfAm >90 (>60 ml/min/1.73 sqM) 11/05/21 03:40 Est GFR (CKD-EPI)NonAf 82 (>60 ml/min/1.73 sqM) 11/05/21 03:40 Glucose 117 mg/dL (74-99) H 11/05/21 03:[address] Glu mg/dL 98 11/05/21 03:40 Hemoglobin A1c 5.0 % (0.0-6.0) 11/05/21 03:40 Calcium 10.1 mg/dL (8.4-10.2) 11/05/21 03:40 Total Bilirubin 0.8 mg/dL (0.2-1.3) 11/05/21 03:40 Conjugated Bilirubin 0.0 mg/dL (0.0-0.3) 11/05/21 03:40 Unconjugated Bilirubin 0.5 mg/dL (0.0-1.1) 11/05/21 03:40 Delta Bilirubin 0.3 mg/dL (0.0-0.2) H 11/05/21 03:40 AST 34 U/L (17-59) 11/05/21 03:40 ALT 20 U/L (4-49) 11/05/21 03:40 Alkaline Phosphatase 115 U/L (38-126) 11/05/21 03:40 Total Protein 9.5 g/dL (6.3-8.2) H 11/05/21 03:40 Albumin 5.5 g/dL (3.5-5.0) H 11/05/21 03:40 Triglycerides 108.00 mg/dL (0.00-149.00) 11/05/21 03:40 Cholesterol 240.00 mg/dL (0.00-200.00) H 11/05/21 03:40 LDL Cholesterol, Calc 187.4 mg/dL (0.0-131.0) H 11/05/21 03:40 VLDL Cholesterol, Calc 21.60 mg/dL (5.00-40.00) 11/05/21 03:40 HDL Cholesterol 31.00 mg/dL (40.00-60.00) L 11/05/21 03:40 Cholesterol/HDL Ratio 7.74 Ratio 11/05/21 03:40 Urine Color Yellow 11/11/21 08:30 Urine Appearance Clear (Clear) 11/11/21 08:30 Urine pH 6.5 (5.0-8.0) 11/11/21 08:30 Ur Specific [place] 1.025 (1.001-1.035) 11/11/21 08:30 Urine Protein Trace (Negative) H 11/11/21 08:30 Urine Glucose (UA) Negative (Negative) 11/11/21 08:30 Urine Ketones Negative (Negative) 11/11/21 08:30 Urine Blood Negative (Negative) 11/11/21 08:30 Urine Nitrite Negative (Negative) 11/11/21 08:30 Urine Bilirubin Negative (Negative) 11/11/21 08:30 Urine Urobilinogen <2.0 mg/dL (<2.0) 11/11/21 08:30 Ur Leukocyte Esterase Negative (Negative) 11/11/21 08:30 Urine Opiates Screen Not Detected (NotDetected) 11/05/21 07:52 Ur Oxycodone Screen Not Detected (NotDetected) 11/05/21 07:52 Urine Methadone Screen Not Detected (NotDetected) 11/05/21 07:52 Ur Propoxyphene Screen Not Detected (NotDetected) 11/05/21 07:52 Ur Barbiturates Screen Not Detected (NotDetected) 11/05/21 07:52 U Tricyclic Antidepress Not Detected (NotDetected) 11/05/21 07:52 Ur Phencyclidine Scrn Not Detected (NotDetected) 11/05/21 07:52 Ur Amphetamines Screen Not Detected (NotDetected) 11/05/21 07:52 U Methamphetamines Scrn Not Detected (NotDetected) 11/05/21 07:52 U Benzodiazepines Scrn Not Detected (NotDetected) 11/05/21 07:52 Urine Cocaine Screen Not Detected (NotDetected) 11/05/21 07:52 U Marijuana (THC) Screen Not Detected (NotDetected) 11/05/21 07:52 Serum Alcohol <10 mg/dL 11/05/21 03:40 Coronavirus (PCR) Not Detected (Not Detectd) 11/05/21 03:47 Vital Signs Temp 97.4 F L 11/15/21 07:07 Pulse 69 11/15/21 07:07 Resp 16 11/14/21 06:56 BP 129/94 11/15/21 07:07 Pulse Ox 100 11/15/21 07:07 FiO2 Intake & Output 11/14/21 11/15/21 11/15/21 18:59 06:59 18:59 Weight 74.7 kg Patient Condition at Discharge: Stable Plan - Discharge Summary Discharge Rx Participant: No New Discharge Prescriptions: New diphenhydrAMINE [Benadryl] 25 mg PO HS PRN 14 Days cap PRN Reason: Insomnia ARIPiprazole [Abilify] 10 mg PO DAILY 11 Days tab ARIPiprazole IM [Abilify Maintena] 400 mg IM QMONTHLY #1 each Discharge Medication List ARIPiprazole IM [Abilify Maintena] 400 mg IM QMONTHLY #1 each 11/15/21 [Rx] ARIPiprazole [Abilify] 10 mg PO DAILY 11 Days tab 11/15/21 [Rx] diphenhydrAMINE [Benadryl] 25 mg PO HS PRN 14 Days cap 11/15/21 [Rx] Follow up Appointment(s)/Referral(s): None,Stated [Primary Care Provider] - 1-2 days Discharge Disposition: HOME SELF-CARE
== END 2021-11-15 14:13 | disposition home or self-care (01) | DRG 885 ==
LOC: EC 22:18 → 3MHU 11-05 08:18
PROVIDERS: ADMIT Psychiatry & Neurology Psychiatry; ATTEND Psychiatry & Neurology Psychiatry
DX: F20.9 Schizophrenia, unspecified (principal); F41.9 Anxiety disorder, unspecified; Z20.822 Contact with and (suspected) exposure to COVID-19
CPT/HCPCS: 36415; 80048; 80061; 80076; 80306; 80320; 81003; 82075; 83036; 85025; 87635; 99285